=== PATIENT | male | born 1975 | race Two or more races ===

== ENCOUNTER 2020-05-11 12:31 | Outpatient (REF) | payer OTHER, SELFPAY | END 2020-05-11 12:32 | disposition home or self-care (01) | LOC: HO.LAB 12:31 | PROVIDERS: Visit Provider Internal Medicine | DX: Z20.828 Contact with and (suspected) exposure to other viral communicable diseases (principal) | CPT/HCPCS: 87635 ==

== ENCOUNTER 2020-10-23 15:26 | Emergency (ER) | payer OTHER, SELFPAY ==
[2020-10-23 16:27] VITALS: BP 155/83; PULSE 72; RESP 18; TEMP 37.1; O2SAT 99; BMI 28.1
--- NOTE | 2020-10-23 16:50 | ED.URI ---
HPI - URI/Sore Throat General Chief Complaint: Upper Respiratory Symptoms Stated Complaint: Covid symptoms Time Seen by Provider: 10/23/20 16:49 Source: patient Mode of arrival: ambulatory Limitations: no limitations History of Present Illness HPI Narrative: 45-year-old male who presented with 1 day history of sore throat, blood body ache, generalized joint ache, dry cough, chills, fever, patient not sure if he was exposed to somebody sick, but no recent travel. Related Data Allergies Allergy/AdvReac Type Severity Reaction Status Date / Time aspirin [ASPIRIN] Allergy Unknown HIVES Unverified 03/30/20 15:29 Review of Systems Review of Systems: All other systems are reviewed and are negative Constitutional: Reports as per HPI and Reports no additional constitutional complaints Eyes: Reports as per HPI and Reports no additional eye complaints Reports system reviewed and no additional complaints, except as documented Cardiovascular: Reports as per HPI and Reports no additional cardiovascular complaints Respiratory: Reports as per HPI and Reports no additional respiratory complaints Gastrointestinal: Reports as per HPI and Reports no additional gastrointestinal complaints Genitourinary: Reports no additional female genitourinary complaints Musculoskeletal: Reports no additional musculoskeletal complaints Skin/Breast: Reports system reviewed and no additional complaints, except as docu Psychiatric: Reports no additional psychiatric complaints Endocrine: Reports no additional endocrine complaints Hematologic/Lymphatic: Reports no additional hematologic/lymphatic complaints Allergic/Immunologic: Reports no additional allergic/immunologic complaints Reports system reviewed and no additional complaints, except as documented and Reports Abnormal speech present [facility] Past Medical History Medical History No known health problems Social History Social History Advance Directives: No Advance Directives Information Provided: No Physical Exam Vital Signs: Vital Signs: Last Vital Signs Temp 98.7 F 10/23/20 16:27 Pulse 72 10/23/20 16:27 Resp 18 10/23/20 16:27 BP 155/83 H 10/23/20 16:27 Pulse Ox 99 10/23/20 16:27 Body Mass Index 28.1 Vital signs have been reviewed as appeared to be correct. Blood pressure elevated. Heart rate normal. Respiration rate normal. Temperature normal. Oxygen saturation normal. Appearance: Alert. Oriented X3. No acute distress. Head: Normal external exam. Normocephalic. Atraumatic. No Echevarria signs noted. No raccoon eyes noted Eyes: PERRLA. EOMI. Conjunctiva and sclera normal. Eyelids normal. ENT: TM's Normal. Pharynx normal. Uvula midline. Moist mucous membranes. No trismus noted. No drooling noted. No muffled voice noted. Neck: Normal inspection. Neck supple. FROM. No adenopathy. Thyroid Normal. No meningeal signs. No neck mass noted. CVS: Normal heart rate and rhythm. Heart sound normal. No murmurs noted. Pulses normal throughout. Respiratory: No respiratory distress. Painless inspiration. Breath sounds normal. No wheezes/rales/rhonchi noted. Chest nontender. No accessory muscle usage noted or decreased air movement noted. Abdomen: Soft and nontender. Bowel sounds normal in all 4 quadrants. No distention noted. No organomegaly noted. No visible injury noted. Back: No CVA tenderness. Full range of motion noted. Skin: Skin warm and dry. Normal skin color. Normal skin turgor. No rashes/lesions/lacerations noted. Extremities: No lower extremity edema. Extremities exhibit normal range of motion. Extremities nontender. Neuro: Oriented X 3. No motor deficit. No sensory deficit. Reflexes normal. Course Course Course Narrative: 45-year-old male came in with sore throat, viral syndrome. Patient was negative for rapid strep, also negative for COVID-19. MDM - URI/Sore Throat Lab Data Attestation: I reviewed the patient's lab results. Labs: Lab Results 10/23/20 Range/Units 17:03 COVID-19 (EULALIA) Negative (Negative) COVID-19 Clin Com See Note Discharge Plan Discharge Clinical Impression: Viral infection Patient Disposition: Home, Self-Care Instructions: Viral Syndrome (ED) Referrals: Physician,Unknown [Primary Care Provider] - 2 days Stand Alone Forms: Work/School Release
[2020-10-23 17:32] LABS: COVID-19 Test Negative (Negative)
== END 2020-10-23 18:43 | disposition home or self-care (01) ==
PROVIDERS: Emergency Provider Emergency Medicine
DX: B34.9 Viral infection, unspecified (principal); Z20.822 Contact with and (suspected) exposure to COVID-19; J02.9 Acute pharyngitis, unspecified
CPT/HCPCS: 36415; 87071; 87635; 87880; 99283

== ENCOUNTER 2020-11-08 07:24 | Outpatient (REF) | payer OTHER, SELFPAY ==
--- NOTE | ~2020-11-08 | XR_ITS ---
EXAMINATION: XR CHEST CLINICAL INFORMATION: Cough COMPARISON: Previous chest x-ray June 2019 TECHNIQUE: 2 views of the chest were obtained. FINDINGS: No significant abnormality is noted involving the heart, lungs, mediastinum, bony thorax or soft tissues. XR/XR chest 2V IMPRESSION: Unremarkable examination.
[2020-11-08 08:25] LABS: MANUAL DIFF FLAG NO
[2020-11-08 08:30] LABS: Basophils Absolute Auto 0.1 X10*3/uL (0.0-0.2); Basophils Percent Auto 0.5 % (0-2); Eosinophils Absolute Auto 0.3 X10*3/uL (0.0-0.4); Eosinophils Percent Auto 2.9 % (0-4); Imm Gran Abs Auto 0.12 X10*3/uL (0.00-0.03); Imm Gran Pct Auto 1.1 % (0.0-0.4); Lymphocytes Absolute Auto 2.5 X10*3/uL (1.2-4.9); Lymphocytes Percent Auto 22.8 % (20-40); Mean Corpuscular HGB Conc 32.6 g/dl (31.0-36.0); Mean Corpuscular Hemoglobin 31.3 pg (27.0-33.0); Mean Corpuscular Volume 95.8 fL (80-98); Mean Platelet Volume 9.3 fL (9.4-12.4); Monocytes Absolute Auto 0.8 X10*3/uL (0.1-1.2); Monocytes Percent Auto 6.8 % (2-11); Neutrophils Absolute Auto 7.3 X10*3/uL (2.0-8.3); Neutrophils Percent Auto 65.9 % (45-73); Platelet Count 237 X10*3/uL (160-400)
[2020-11-08 09:00] LABS: Alanine Aminotransferase 31 U/L (0-40); Albumin Level 4.4 g/dL (3.5-5.0); Alkaline Phosphatase 76 U/L (39-117); Anion Gap 14 (12-20); Aspartate Amino Transferase 24 U/L (5-37); Bilirubin Total 0.5 mg/dL (0.0-1.0); Blood Urea Nitrogen 18 mg/dL (9-16); Calcium 9.2 mg/dL (8.4-10.2); Carbon Dioxide 26 mmol/L (22-29); Chloride 104 mmol/L (96-108); Cholesterol 217 mg/dL; Estimated Glomerular Filt Rate > 60; Glucose Fasting 119 mg/dL (60-99); HDL Cholesterol 52 mg/dL; LDL Cholesterol Calculated 125 mg/dl; Potassium 4.5 mmol/L (3.3-5.1); Sodium 139 mmol/L (135-145); Total Protein 7.1 g/dL (6.5-8.0); Triglycerides 202 mg/dL
== END 2020-11-08 07:25 | disposition home or self-care (01) ==
LOC: HO.LAB 07:24
PROVIDERS: PCP Internal Medicine; Visit Provider Internal Medicine
DX: Z00.00 Encounter for general adult medical examination without abnormal findings (principal); E11.9 Type 2 diabetes mellitus without complications; R05 Cough
CPT/HCPCS: 36415; 71046; 80053; 80061; 85025

== ENCOUNTER 2025-05-06 14:13 | Outpatient (REF) | payer MEDICAID, SELFPAY ==
--- OUTSIDE RECORDS SUMMARY | 2025-05-06 13:00 | XMS_ITS | Encounter Summary ---
Author Organization [employer] Address [address] [facility] [address] [place] [address] Care Team Providers Care Brim Flexer Name Role Phone Arleth Hayes PLANT OPERATIONS VICE PRESIDENT Primary Care Provider [phone] Encounter Details Date Type Department Care Team ([facility] st Contact Info) Description 05/06/2025 1:00 PM EDT Office Visit [facility] [address] [place] [address] Arleth Hayes NP [address] [place] [address] Bipolar affective disorder, remission status unspecified (CMS/HCC) ([facility]) (Primary Dx); Prediabetes; Dietary counseling; Exercise counseling; Lipid screening; Healthcare maintenance; Acute gout involving toe of right foot, unspecified cause Social History Tobacco Use Types Packs/Day Years Used Date Smoking Tobacco: Every Day Cigarettes Passive Smoke Exposure: Current Smokeless Tobacco: Never Tobacco Cessation:Ready to Q uit: Not Asked; Counseling Given: Not Answered Depression Answer Date Recorded Patient Health Questionnaire-9 Score 27 05/06/2025 Patient Health Questionnaire-9 Score 27 05/06/2025 Last PHQ-9: Questionnaire Data Not on file 1 Housing Stability Answer Date Recorded What is your housing situation today? I do not have housing (Staying with others, in a hotel, in a jail, living outside on the street, on a beach, in a car, or in a park 05/06/[address] you li ve. Do you have problems with any of the following? I am not sure 05/06/2025 Food Insecurity Answer Date Recorded Within the past 12 months, y ou worried that your food would run out before you got money to buy more: Often true 05/06/2025 Within the past 12 months,th e food you bought just didn't last and you didn't have enough money to get more: Often true Transportation Answer Date Recorded In the past 12 months, has l ack of transportation kept you from medical appts, meetings, work or from getting things needed for daily living? No 05/06/2025 Utilities Answer Date Recorded In the past 12 months, has t he electric, gas, oil or water company threatened to shut off services in your home? No 05/06/2025 Depression Answer Date Recorded Patient Health Questionnaire-2 Score 6 05/06/2025 Internet Access Answer Date Recorded Internet Access Q1 No 05/06/2025 Internet Access Q2 I cannot afford it 05/06/2025 Sex and Gender Information Value Date Recorded Sex Assigned at Male 05/06/2025 12:38 PM EDT Legal Sex Male 3:30 PM EDT Gender Identity Male 05/06/2025 12:38 PM EDT Sexual Orientation Straight 05/06/2025 12 :38 PM EDT documented as of this encounter Last Filed Vital Signs Vital Sign Reading Time Taken Comments Blood Pressure 132/74 05/06/2025 1:07 PM EDT Pulse 62 05/06/2025 1:07 PM EDT Temperature 36.7 C (98 F) 05/06/2025 1:07 PM EDT Respiratory Rate 18 05/06/2025 1:07 PM EDT Oxygen Saturation 98% 05/06/2025 1:07 PM EDT Inhaled Oxygen Concentration - - Weight 82.8 kg (182 lb 8 oz) 05/06/2025 1:07 PM EDT Height 173.5 cm (5' 8.31 ) 05/06/2025 1:07 PM ED T Body Mass Index 27.5 05/06/2025 1:07 PM EDT documented in this encounter Functional Status * Over the past 2 weeks, how often have you been bothered by any of the following problems? Question Answer Date of Assessment Author Patient Health Questionnaire -2 Score 6 05/06/2025 1:10 PM EDT Janae Lockwood [place] * Little interest or pleasure in doing things Answer Date of Assessment Author Nearly every day 05/06/2025 1:10 PM EDT Janae Chacko [place], [place] * Feeling down, depressed, or hopeless Answer Date of Assessment Author Nearly every day 05/06/2025 1:10 PM EDT Janae Chacko [place], [place] * Trouble falling or staying asleep, or sleeping too much Answer Date of Assessment Author Nearly every day 05/06/2025 1:10 PM EDT Janae Chacko [place], [place] * Feeling tired or having little energy Answer Date of Assessment Author Nearly every day 05/06/2025 1:10 PM EDT Janae Chacko [place], [place] * Poor appetite or overeating Answer Date of Assessment Author Nearly every day 05/06/2025 1:10 PM EDT Janae Chacko [place], [place] * Feeling bad about yourself - or that you are a failure or have let yourself or your family down Answer Date of Assessment Author Nearly every day 05/06/2025 1:10 PM EDT Janae Chacko [place], [place] * Trouble concentrating on things, such as reading the newspaper or watching television Answer Date of Assessment Author Nearly every day 05/06/2025 1:10 PM EDT Janae Chacko [place], [place] * Moving or speaking so slowly that other people could have noticed? Or the opposite - being so fidgety or restless that you have been moving around a lot more than usual. Answer Date of Assessment Author Nearly every day 05/06/2025 1:10 PM EDT Janae Chacko [place], [place] * Thoughts that you would be better off or hurting yourself in some way Answer Date of Assessment Author Nearly every day 05/06/2025 1:10 PM EDT Janae Chacko [place], [place] * Patient Health Questionnaire-9 Score Answer Date of Assessment Author 27 05/06/2025 1:10 PM EDT Janae Mckee MA * How difficult have these problems made it for you to do your work, take care of things at home, or get along with other people? Answer Date of Assessment Author Extremely difficult 05/06/2025 1:10 PM EDT Janae Lockwood [place] * Over the last 2 weeks, how often have you been bothered by any of the following problems? Question Answer Date of Assessment Author Feeling nervous, anxious, or on edge 3 05/06/2025 1:11 PM EDT Janae Lockwood MA Not being able to stop or control worrying 3 05/06/2025 1:11 PM EDT Janae Lockwood MA Worrying too much about different things 3 05/06/2025 1:11 PM EDT Janae Lockwood MA Trouble relaxing 3 05/06/2025 1:11 PM EDT Janae Egan MA Being so restless that it is hard to sit still 3 05/06/2025 1:11 PM EDT Janae Lockwood MA Becoming easily annoyed or irritable 3 05/06/2025 1:11 PM EDT Janae Lockwood MA Feeling afraid as if somethi ng awful might happen 3 05/06/2025 1:11 PM EDT Janae Lockwood MA SHERWIN-7 Total Score 21 05/06/2025 1:11 PM EDT Janae Lockwood [place] documented as of this encounter Miscellaneous Notes * Assessment & Plan Note - Arleth Hayes NP - 05/06/2025 1:00 PM EDTAssociated Problem(s): Bipolar affective disorder, remission status unspecified (CMS/HCC) (HCC) Has been off medications (carbamazepine and mirtazepine) since 2017 Orders: carBAMazepine (TEGretol) 100 MG chewable tablet; Chew 0.5 tablets (50 mg) 3 times daily. * Assessment & Plan Note - Arleth Hayes NP - 05/06/2025 1:00 PM EDTAssociated Problem(s): Prediabetes Diagnosed in 2017. Today's A1c 5.6 Orders: POCT Glucose POCT Hgb A1c documented in this encounter Plan of Treatment Scheduled Orders Name Type Priority Associated Diagnoses Orde r Schedule Comprehensive Metabolic Panel Lab Routine Healthcare maintenance Expected: 05/06/2025 (Approximate), Expires: 05/06/2026 Lipid Panel, Standard Lab Routine Lipid screening Expected: 05/06/2025 (Approximate), Expires: 05/06/2026 documented as of this encounter Procedures Procedure Name Priority Date/Time Associated Diagnosis Comments POCT GLYCATED HEMOGLOBIN, TOTAL Routine 05/06/2025 1:28 PM EDT Prediabetes POCT GLUCOSE Routine 05/06/2025 1:27 PM EDT Prediabetes documented in this encounter Results * POCT Hgb A1c (05/06/2025 1:28 PM EDT) Hemoglobin A1C 5.6 4.0 - 5.7 % QC Media Lot # [id number] Lot# Expiration Date , Blood 05/06/2025 1:28 PM EDT Arleth Hayes NP POINT OF CARE TEST ENTER/EDIT O RDERABLES Final Result * POCT Glucose (05/06/2025 1:27 PM EDT) Glucose Blood, POC 133 60 - 200 mg/dL QC Media Lot # [id number] Lot# Expiration Date 280, Blood Capillary blood specimen / Unknown 05/06/2025 1:27 PM EDT us Arleth Hayes NP POINT OF CARE TEST ENTER/EDIT O RDERABLES Final Result documented in this encounter Visit Diagnoses Diagnosis Bipolar affective disorder, remission status unspecified (CMS/HCC) (HCC)- Primary Prediabetes Other abnormal glucose Dietary counseling Dietary surveillance and counseling Exercise counseling Lipid screening Screening for lipoid disorders Healthcare maintenance Acute gout involving toe of right foot, unspecified cause documented in this encounter Additional Health Concerns Assessment Noted Time PHQ-9 Depression Total Score: 27 025 1:10 PM EDT documented as of this encounter Care Teams Brim Flexer Relationship Specialty Start Date End Date Arleth Hayes NP [address] [place] [id number] PCP - General Nurse Practitioner 05/05/25 documented as of this encounter
--- OUTSIDE RECORDS SUMMARY | 2025-05-06 16:15 | XMS_ITS | Encounter Summary ---
Author Organization [employer] Address [address] [facility] 7[address] [place] [address] Care Team Providers Care Rockboard Lather Name Role Phone Arleth Hayes TECH INTERN Primary Care Provider [phone] Reason for Visit * Reason Onset Date Comments CHARTPREP 05/05/2025 Encounter Details Date Type Department Care Team ([facility] st Contact Info) Description 05/05/2025 Telephone [facility] [address] [place], [place] [phone] Arleth Hayes NP [address] [place], [place] [phone] CHARTPREP Social History Tobacco Use Types Packs/Day Years Used Date Smoking Tobacco: Never Assessed Depression Answer Date Recorded Patient Health Questionnaire-9 Score 27 05/06/2025 Patient Health Questionnaire-9 Score 27 05/06/2025 Last PHQ-9: Questionnaire Data Not on file 1 Housing Stability Answer Date Recorded What is your housing situation today? I do not have housing (Staying with others, in a hotel, in a halfway, living outside on the street, on a [...] PM EDT documented as of this encounter Miscellaneous Notes * Telephone Encounter - Chidi Honeycutt MA - 05/05/2025 1:29 PM EDT Chart Prep Labs: not applicable Images: not applicable Referrals: not applicable Vaccines due: Covid, Flu, PCV20, Tdap, Hep B, and Zoster Screenings: colonoscopy,alcohol/substance use screnning,Hep C screening Overdue care gaps: SBIRT, SDOH, PHQ-9, SHERWIN-7, Oral health screening, Disability screen, and Tobacco documented in this encounter Plan of Treatment Not on file documented as of this encounter Visit Diagnoses Not on filedocumented in this encounter Care Teams Rockboard Lather Relationship Specialty Start Date End Date Arleth Hayes NP [address] [place] [id number] PCP - General Nurse Practitioner 05/05/25 documented as of this encounter
--- OUTSIDE RECORDS SUMMARY | 2025-05-06 16:15 | XMS_ITS | Encounter Summary ---
Author Organization [employer] Address [address] [facility] [address] [address] [facility] 7[address] [place] [address] Care Team Providers Care Electrician Machine Shop Name Role Phone Arleth Hayes NP Primary Care Provider [phone] Encounter Details Date Type Department Care Team (Latest Contact Info) Description 05/06/2025 Travel Social History Tobacco Use Types Packs/Day Years Used Date Smoking Tobacco: Every Day Cigarettes Passive Smoke Exposure: Current Smokeless Tobacco: Never Depression Answer Date Recorded Patient Health Questionnaire-9 Score 27 05/06/2025 Patient Health Questionnaire-9 Score 27 05/06/2025 Last PHQ-9: Questionnaire Data Not on file 1 Housing Stability Answer Date Recorded What is your housing situation today? I do not have housing (Staying with others, in a hotel, in a long term, living outside on the street, on a [...] PM EDT documented as of this encounter Functional Status * Over the [...] Lockwood [place] documented as of this encounter Plan of Treatment Not on file documented as of this encounter Visit Diagnoses Not on filedocumented in this encounter Additional Health Concerns Assessment Noted Time PHQ-9 Depression Total Score: 27 025 1:10 PM EDT documented as of this encounter Care Teams Electrician Machine Shop Relationship Specialty Start Date End Date Arleth Hayes NP [address] [place] [id number] PCP - General Nurse Practitioner 05/05/25 documented as of this encounter
--- OUTSIDE RECORDS SUMMARY | 2025-05-06 16:15 | XMS_ITS | Clinical Summary ---
Author Organization [employer] Address [address] [facility] [facility] [address] 7[address] [place] [address] Care Team Providers Care Construction Project Engineer Name Role Phone Arleth Hayes NP Primary Care Provider [phone] Allergies No known active allergies Medications * This document contains information received from the source organization and may not represent a complete record from that organization. carBAMazepine (TEGretol) 100 MG chewable tabletIndication s:Bipolar Mood Disorder Chew 0.5 tablets (50 mg) 3 times daily. 90 tablet 3 5 05/06/20 26 Active predniSONE (Deltasone) 20 MG tabletIndication s:Acute gout involving toe of right foot, unspecified cause Take 2 tablets (40 mg) by mouth Once per day for 5 days. 10 tablet 5 05/11/20 25 Active carBAMazepine (TEGretol) 100 MG/5ML suspension Take 100 mg by mouth 4 times daily. 7 05/06/20 25 Discontinu ed(Non-com pliance) mirtazapine (Remeron) 30 MG tablet Take 30 mg by mouth at bedtime. 7 05/06/20 25 Discontinu ed(Non-com pliance) Active Problems Problem Noted Date Diagnosed Date Bipolar affective disorder, remission status unspecified ([facility]) 05/06/2025 Assessment & Plan (05/06/2025 2:11 PM EDT): Has been off medications (carbamazepine and mirtazepine) since 2017 Orders: carBAMazepine (TEGretol) 100 MG chewable tablet; Chew 0.5 tablets (50 mg) 3 times daily. Prediabetes 05/06/2025 Assessment & Plan (05/06/2025 2:11 PM EDT): Diagnosed in 2017. Today's A1c 5.6 Orders: POCT Glucose POCT Hgb A1c Bipolar 1 disorder with moderate john (CMS/HCC) 05/06/2025 Encounters * This document contains information received from the source organization and may not represent a complete record from that organization. Date Type Department Care Team Description 05/06/2025 1:00 PM EDT Office Visit [facility] [address] [place] [phone] Arleth Hayes NP Bipolar affective disorder, remission status unspecified (CMS/HCC) (HCC) (Primary Dx); Prediabetes; Dietary counseling; Exercise counseling; Lipid screening; Healthcare maintenance; Acute gout involving toe of right foot, unspecified cause 05/06/2025 Travel 05/05/[address] [address] Arleth Hayes NP CHARTPREP 04/29/2025 Patient Outreach [facility] [address] [place], [place] [phone] Arleth Hayes NP Pre-visit Planning (SDOH will need to be completed in office.) 04/11/[address] [address] Rjei Reyes MD Call Back Request; New Patient appt. 03/08/[address] [phone] Reji Reyes MD Appointment Request from Last 3 Months Social History Tobacco Use Types Packs/Day Years [...] with others, in a hotel, in a care home, living outside on the street, on a [...] Orientation Straight 05/06/2025 12 :38 PM EDT Last Filed Vital Signs Vital Sign Reading [...] Mass Index 27.5 05/06/2025 1:07 PM EDT Plan of Treatment Health Maintenance Due Date Last Done Comments CT Colonography 1975 Colonoscopy 1975 Colorectal Cancer Screening 1975 FIT DNA/Cologuard 1975 FIT 1975 FOBT 1975 HIV Screening 1975 Lipid Panel 1975 Sigmoidoscopy 1975 Family Planning (PISQ) 1990 Hepatitis C Screening 1993 DTaP/Tdap/Td Vaccines (1 - Tdap) 1994 Hepatitis A Vaccines (1 of 2 - Risk 2-dose series) 1994 Hepatitis B Vaccines (1 of 3 - 19+ 3-dose series) 1994 Pneumococcal Vaccine: 50+ Years (1 of 2 - PCV) 1994 Zoster Vaccines (1 of 2) 2025 COVID-19 Vaccine (1 - 2023-2 5 season) 2025 Influenza Vaccine (#1) 2025 Depression Monitoring 11/04/2025 05/06/2025 , 05/06/2025 Alcohol/Substance Use Screening 05/06/2026 05/06/2025 Diabetes: Hemoglobin A1C 05/06/2026 05/06/2025 Disability Screening 05/06/2026 05/06/2025 SDOH Screening 05/06/2026 05/06/2025 Tobacco Screening 05/06/2026 05/06/2025 RSV Patients and Patients Aged 60 years or older (1 - 1-dose 75+ series) 2050 HIB Vaccines Aged Out No longer eligi ble based on patient's age to complete this topic HPV Vaccines Aged Out No longer eligi ble based on patient's age to complete this topic IPV Vaccines Aged Out No longer eligi ble based on patient's age to complete this topic Meningococcal B Vaccine Aged Out No l onger eligible based on patient's age to complete this topic Meningococcal Vaccine Aged Out No anupam [place] eligible based on patient's age to complete this topic RSV under 20 months Aged Out No longe r eligible based on patient's age to complete this topic Rotavirus Vaccines Aged Out No longer eligible based on patient's age to complete this topic Procedures Procedure Name Priority Date/Time Associated Diagnosis Comments POCT GLYCATED HEMOGLOBIN, TOTAL Routine 05/06/2025 1:28 PM EDT Prediabetes POCT GLUCOSE Routine 05/06/2025 1:27 PM EDT Prediabetes from Last 3 Months Results * POCT Hgb A1c (05/06/2025 1:28 PM EDT) Hemoglobin A1C 5.6 4.0 - 5.7 % QC Media Lot # [id number] Lot# Expiration Date [id number] Blood 05/06/2025 1:28 PM EDT Arleth Hayes NP POINT OF CARE TEST ENTER/EDIT O RDERABLES Final Result * POCT Glucose (05/06/2025 1:27 PM EDT) Glucose Blood, POC 133 60 - 200 mg/dL QC Media Lot # [id number] Lot# Expiration Date 2087,026 Blood Capillary blood specimen / Unknown 05/06/2025 1:27 PM EDT Arleth Hayes NP POINT OF CARE TEST ENTER/EDIT O RDERABLES Final Result from Last 3 Months Insurance [facility] C3 Care Teams Construction Project Engineer Relationship Specialty Start Date End Date Arleth Hayes NP [address] [place] [id number] PCP - General Nurse Practitioner 05/05/25
[2025-05-06 17:17] LABS: Alanine Aminotransferase 29 U/L (0-40); Albumin Level 4.6 g/dL (3.5-5.0); Alkaline Phosphatase 65 U/L (39-117); Anion Gap 12 (12-20); Aspartate Amino Transferase 21 U/L (5-37); Blood Urea Nitrogen 22 mg/dL (9-16); Calcium 9.2 mg/dL (8.4-10.2); Carbon Dioxide 27 mmol/L (22-29); Chloride 107 mmol/L (96-108); Cholesterol 165 mg/dL (<200); Estimated Glomerular Filt Rate > 60; HDL Cholesterol 44 mg/dL (>40); Potassium 4.4 mmol/L (3.3-5.1); Sodium 142 mmol/L (135-145); Total Protein 7.0 g/dL (6.5-8.0); Triglycerides 201 mg/dL (<150)
== END 2025-05-06 14:14 | disposition home or self-care (01) ==
LOC: HO.HHCL 14:13
DX: Z00.00 Encounter for general adult medical examination without abnormal findings (principal); Z13.220 Encounter for screening for lipoid disorders
CPT/HCPCS: 36415; 80053; 80061